=== PATIENT | male | born 1975 | race Caucasian/White ===

== ENCOUNTER 2018-01-20 21:18 | Inpatient (IN) | payer SELFPAY, OTHER ==
[2018-01-21] MEDS ORDERED: OLANZapine ORAL DISINTEGRATING TAB 5MG PO
[2018-01-21] MEDS ORDERED: MOM 30ML SUSPENSION UDC PO
[2018-01-21] MEDS ORDERED: MAALOX 30 ML SUSP *UDC PO
[2018-01-21] MEDS: traZODone 50 MG TAB PO (01:02)
[2018-01-21] MEDS: ACETAMINOPHEN TAB 650MG DOSE (2X325MG) PO (01:02)
[2018-01-21] MEDS: NICOTINE 21MG/24HR 1 EA TRANSDERMAL TD (09:00)
[2018-01-22] MEDS: NICOTINE 21MG/24HR 1 EA TRANSDERMAL TD (09:00)
== END 2018-01-22 15:30 | disposition home or self-care (01) | DRG 754 ==
LOC: M ED INP 23:52 → M PSY 01-21 00:20 → M ED 21:18
DX: F34.1 Dysthymic disorder (principal); F43.8 Other reactions to severe stress; F17.210 Nicotine dependence, cigarettes, uncomplicated; Z63.0 Problems in relationship with spouse or partner; Z62.810 Personal history of physical and sexual abuse in childhood; Z62.811 Personal history of psychological abuse in childhood; Z79.899 Other long term (current) drug therapy; Z81.8 Family history of other mental and behavioral disorders